=== PATIENT | female | born 1975 | race African-American/Black ===

== ENCOUNTER 2018-06-24 20:55 | Emergency (ER) | payer SELFPAY ==
[~2018-06-24] VITALS: Ht 154.9 cm; Wt 79.3 kg
[2018-06-24] MEDS ORDERED: IBUPROFEN 600MG TABLET PO STA (22:39)
[2018-06-24] MEDS ORDERED: TETANUS, DIPHTHERIA, PERTUSSIS VAC/PF 0.5ML (>7YR OLD) IM ONE (22:45)
[2018-06-24] MEDS ORDERED: DIPHENHYDRAMINE 25MG CAPSULE PO ONE (22:45)
[2018-06-24 23:34] VITALS: BP 140/91
== END 2018-06-24 23:35 | disposition home or self-care (01) ==
LOC: ER 20:55
DX: S00.86XA Insect bite (nonvenomous) of other part of head, initial encounter (principal); S50.861A Insect bite (nonvenomous) of right forearm, initial encounter; S70.361A Insect bite (nonvenomous), right thigh, initial encounter; S10.96XA Insect bite of unspecified part of neck, initial encounter; R59.1 Generalized enlarged lymph nodes; R59.0 Localized enlarged lymph nodes; W57.XXXA Bitten or stung by nonvenomous insect and other nonvenomous arthropods, initial encounter; Y93.89 Activity, other specified; Y92.89 Other specified places as the place of occurrence of the external cause; Y99.8 Other external cause status
CPT/HCPCS: 81025; 90471; 90715; 99283; Q0163